=== PATIENT | female | born 1990 | race Caucasian/White ===

== ENCOUNTER 2022-01-23 08:02 | Outpatient (CLI) | payer OTHER, SELFPAY ==
--- NOTE | 2022-01-23 08:15 | US_ITS ---
Final Report Patient: JARRELL DALTON Facility:?[facility] Patient ID:?[id number] Site Patient ID:?[id number]. Site :?[id number] Study:?US OB Pelvis -01/23/2022 8:54:39 AM Ordering Physician:Adelina October Final Report: INDICATION: First trimester scan, establish dates. TECHNIQUE: Real-time dickinson-scale imaging of the pelvis was performed. FINDINGS: Sonographic imaging demonstrates a single living intrauterine gestation. The embryo demonstrates a regular cardiac rate measuring 173 beats per minute. The embryo`s crown-rump length measurement of 1.6 cm corresponds to a gestational age of 8 weeks 0 with a sonographic due date of 09/04/2022. There is a normal- appearing yolk sac. Small subchorionic hemorrhage measuring 1.3 x 0.9 x 2 centimeters. Ovaries unremarkable right ovarian corpus luteum cyst. IMPRESSION: Early intrauterine with crown-rump length measuring 1.6 centimeters corresponding to 8 weeks 0 days with WILEY of 09/04/2022. Small subchorionic hemorrhage. Dictated by Francisca Sanchez MD @ 01/23/2022 9:02:17 AM (Electronic Signature)
[2022-01-23 13:34] LABS: HIV 1/2/P24 Combo Screen* Negative (Negative); Hepatitis B Surface Antigen* Negative (Negative); Hepatitis C Virus Antibody* Negative (Negative)
[2022-01-24 18:31] LABS: Rubella Antibody IgG 26.9 IU/mL
[2022-01-25 05:16] LABS: Rapid Plasma Reagin (RPR) Non Reactive (Non Reactive)
== END 2022-01-23 08:03 | disposition home or self-care (01) ==
PROVIDERS: Visit Provider Physician Assistant
DX: O21.0 Mild hyperemesis gravidarum (principal); Z3A.08 8 weeks gestation of pregnancy
CPT/HCPCS: 36415; 76817; 86592; 86703; 86706; 86762; 86803; 86850; 86900; 86901; 87086; 87340; 87491; 87591

== ENCOUNTER 2022-04-24 08:02 | Outpatient (CLI) | payer OTHER, SELFPAY ==
--- NOTE | 2022-04-24 08:15 | CRLHL7_ITS ---
For Patients: As a result of the Century Cures Act, medical imaging exams and procedure reports are released immediately into your electronic medical record. You may view this report before your referring provider. If you have questions, please contact your health care provider. INDICATION: Evaluate anatomy. COMPARISON: 01/23/2022 TECHNIQUE: Real time dickinson scale imaging of the fetus was performed as well as color Doppler analysis of the umbilical vessels. FINDINGS: Sonographic imaging demonstrates a single living intrauterine gestation. Fetus demonstrates a regular cardiac rate of 148 beats per minute. Fetus has a vertex position. The placenta lies posteriorly without evidence of placenta previa. The edge of the placenta is located 4.8 cm from the internal cervical os. Amniotic fluid volume appears normal. Single deepest vertical pocket: 4.1 cm. The cervix is closed and measures 4.1 cm in length. The composite ultrasound gestational age is calculated at 21 weeks 4 days with an estimated sonographic due date of 08/31/2022. The estimated weight is 454 grams which lies at the 66th %. The following biometric measurements were obtained: Biparietal diameter: 4.8 cm/20 weeks 4 days 15th% Head circumference: 18.4 cm/20 weeks 5 days 14th% Abdominal circumference: 18.0 cm/22 weeks 6 days 85th% Femur length: 3.5 cm/21 weeks 0 days 26th% The HC/AC ratio measures: 1.02 range (1.06-1.24) On anatomic survey, there is a normal appearance of the cerebral ventricles, cavum septi pellucidi, cisterna magna and cerebellum. The nose, lips, and facial profile appear normal. The cervical, thoracic and lumbar spine are well visualized and appear normal. There is a normal four-chamber heart view and the left and right ventricular outflow tracts appear normal. The diaphragm and stomach appear normal. The kidneys and bladder also appear normal. There is a normal three-vessel cord and cord insertion site. The four extremities appear normal. IMPRESSION: Normal OB ultrasound exam with concordance of clinical and sonographic dating. No intrinsic abnormalities noted on anatomic survey. Dictated by Prabhu Cintron MD @ 04/24/2022 11:53:35 AM (Electronically Signed)
== END 2022-04-24 08:03 | disposition home or self-care (01) ==
LOC: US 08:03
PROVIDERS: Visit Provider Advanced Practice Midwife
DX: Z34.02 Encounter for supervision of normal first pregnancy, second trimester (principal); Z36.89 Encounter for other specified antenatal screening; Z3A.21 21 weeks gestation of pregnancy
CPT/HCPCS: 76805

== ENCOUNTER 2022-06-12 08:01 | Outpatient (CLI) | payer OTHER, SELFPAY ==
[2022-06-13 17:16] LABS: Rapid Plasma Reagin (RPR) Non Reactive (Non Reactive)
== END 2022-06-12 08:02 | disposition home or self-care (01) ==
LOC: NFLDREF 08:02
PROVIDERS: Visit Provider Advanced Practice Midwife
DX: Z34.93 Encounter for supervision of normal pregnancy, unspecified, third trimester (principal); Z3A.28 28 weeks gestation of pregnancy
CPT/HCPCS: 86592

== ENCOUNTER 2022-08-07 09:28 | Outpatient (CLI) | payer OTHER, SELFPAY ==
[2022-08-08 10:35] LABS: Strep B Pen/Amox Allergy No
[2022-08-08 12:15] LABS: Strep B DNA Probe NEGATIVE (Negative)
== END 2022-08-07 09:29 | disposition home or self-care (01) ==
LOC: NFLDREF 09:29
PROVIDERS: Visit Provider Advanced Practice Midwife
DX: Z34.03 Encounter for supervision of normal first pregnancy, third trimester (principal); Z3A.36 36 weeks gestation of pregnancy
CPT/HCPCS: 87081; 87653

== ENCOUNTER 2022-08-13 16:35 | Outpatient (CLI) | payer OTHER, SELFPAY ==
[2022-08-13 16:46] VITALS: PULSE 82; O2SAT 100
[2022-08-13 16:47] VITALS: BP 135/77; PULSE 73
[2022-08-13 16:51] VITALS: PULSE 66; O2SAT 99
[2022-08-13 16:56] VITALS: PULSE 65; O2SAT 99
--- NOTE | 2022-08-13 18:06 | PC.OBNST ---
NST Note NST Note Start: 08/13/22 16:51 Freq: ONCE Status: Active Protocol: Document 08/13/22 18:02 LG (Rec: 08/13/22 18:06 LG [id number]) NST Note 1 Para (# of births) 0 EDC 09/01/22 Gestational Age In Weeks & Days 37 Weeks & 2 Days Patient Presented with Complaint(s) of Contractions/cramping, Decreased movement,Other Other Complaints Patient reports she slipped on the ice on 08/02/22 around 1800 . Patient reports feeling increased cramps since that time but was feeling normal movement. Patient reports she noticed movement was less than usual this afternoon while at work. Patient called [facility] and was advised to be seen for monitoring. Reactive Yes Appropriate for Gestational Age Yes IRMA Aldana RN Date 08/13/22 Reactive Yes Appropriate for Gestational Age Yes IRMA Cruz RN Date 08/13/22 OB NST charge Yes Complete NST Note via Write Note Yes The provider's electronic signature indicates the NST is reactive/appropriate for gestational age. *Note to provider: If an addendum is required, open the patient's chart and click on the note under the Nurse/Allied Health tab.
== END 2022-08-13 18:08 | disposition home or self-care (01) ==
LOC: OB OUT 16:35 → OB 16:37
PROVIDERS: Visit Provider Advanced Practice Midwife
DX: O36.8130 Decreased fetal movements, third trimester, not applicable or unspecified (principal); Z3A.37 37 weeks gestation of pregnancy
CPT/HCPCS: 59025; 99213

== ENCOUNTER 2022-09-08 11:00 | Outpatient (CLI) | payer OTHER, SELFPAY ==
--- NOTE | 2022-09-08 11:00 | CRLHL7_ITS ---
For Patients: As a result of the Century Cures Act, medical imaging exams and procedure reports are released immediately into your electronic medical record. You may view this report before your referring provider. If you have questions, please contact your health care provider. INDICATION: POST DATES COMPARISON: 04/24/2022 TECHNIQUE: Real time dickinson scale imaging of the fetus was performed. Without non-stress testing. FINDINGS: Sonographic imaging demonstrates a single living intrauterine gestation. Fetus demonstrates a regular cardiac rate of 136 beats per minute. Fetus has a vertex position. The amniotic fluid volume appears normal and there is a single deepest pocket measurement of 4.8 cm. The fetus was active and demonstrated normal breathing movements. There was normal flexion and extension of the trunk and extremities. IMPRESSION: Normal biophysical profile score of 8 out of 8. Dictated by Prabhu Cintron MD @ 09/08/2022 11:47:27 AM (Electronically Signed)
== END 2022-09-08 11:01 | disposition home or self-care (01) ==
LOC: US 11:00
PROVIDERS: Visit Provider Advanced Practice Midwife
DX: O48.0 Post-term pregnancy (principal)
CPT/HCPCS: 76819

== ENCOUNTER 2022-09-10 13:19 | Inpatient (IN) | payer OTHER, SELFPAY ==
[2022-09-10] VITALS (13 sets, daily range): BP systolic 114–188; BP diastolic 56–123; PULSE 59–88; RESP 16; TEMP 36.7–36.8; BMI 33.3
--- NOTE | 2022-09-10 13:51 | W.PM.LDBA ---
Subjective History of Present Illness Date Seen: 09/10/22 Narrative: Patient is being admitted to Labor and Delivery for active labor. She is a 32 year old at 41.2 weeks gestation. Her full history and physical was dictated by Liz Nelson CNM on 08-11-2022. Please see this for details. 1. Hearing impaired, does not use hearing aids, louder voice is usually all that is needed 2. Exercise-induced asthma OB - Problem Based A/P Additional Plan (1) Post-dates : Status: Acute (2) Pain during labor: Status: Acute Plan ASSESSMENT:? at 41.2?weeks gestation? GBS negative? Uncomplicated ? Active labor ?? PLAN:? 1. Desires water . Consent signed. Hep C negative.? 2. Candidate for analgesia of choice. Planning unmedicated .? 3. Anticipate ? 4. Expectant management at this time.? 5. No IV needed at this time unless patient condition changes per unit policy. 6. Intermittent auscultation per unit policy after reactive tracing is obtained.? Delivery/Labor/Induction Plan Plan: expectant management OB Result Labs Blood Type: A (+) positive GBS Status: negative OB Exam Physical Exam Vital signs: Pulse BP 59 L 125/81 09/10/22 13:22 09/10/22 13:22 Narrative: OBJECTIVE:? Vitals per EMR? Psychiatric:? Alert and oriented x3? HEENT:? Normocephalic, atraumatic? Neck:? Supple without adenopathy or thyromegaly? Lungs:? Clear to auscultation bilaterally? Heart:? Regular rate and rhythm, no murmur, rub or gallop? Abdomen:? Soft, nontender, and gravid? Extremities:? No edema or erythema? Pelvic:? SVE: 3.5cm/80%/--1? Membrane status:? intact? presentation:? vertex? FHT:? Moderate Variability.? Positive Accels.? No Decels. Baseline 120.? Venturia:? Ctx Q2-4min? Detailed Labor and Delivery Exam Patient Gravid: Yes Dilation (cm): 3 (3.5 per RN exam) Effacement (%): 80 Contraction Frequency: 2-4min Tachysystole: No Contraction intensity: Strong/Firm Fetus (Single) Station: -1 Amniotic Membrane Status: intact Heart Rate Baseline: 120 Monitor Accelerations: Present Monitor Decelerations: None Retirement Variability: Moderate (6-25)
[2022-09-10 14:32] LABS: SARS PCR* Negative SARS-CoV-2 (Negative)
[2022-09-10] MEDS: LIDOCAINE 1 % PF 30 ML INJECTION (17:46)
--- NOTE | 2022-09-10 18:13 | P.OBPRC_ITS ---
Procedure Delivery date: 09/10/22 Procedure Done: Global Procedure Details: Patient is a 32 year-old G1 now P1 admitted on 09/10/22 at 41 Weeks, 2 Days gestation for labor.? Cervical exam on admission was 3.5 cm/80 % effaced/-1 station with membranes intact in vertex presentation.? Contractions were every 2-4 minutes.? heart rate demonstrated baseline 120 bpm with moderate variability, + accelerations, - decelerations; a category 1 tracing.? AROM occurred at 1510 with clear fluid.? ? Labor Analgesia:? Nitrous for a portion of the labor? ?? Pitocin:? No? ?? Labor onset:? 1400? ?? Complete:? Assumed with pushing at 1532? ?? Pushing:? 1532? ?? heart tones during second stage were obtained by Doppler in the 130- 140's.?No decelerations heard. ?? At 1701 a viable female infant delivered in vertex ROT presentation over intact perineum via spontaneous vaginal delivery.? Infant was placed on maternal abdomen.? Cord was clamped and cut after a?>5 minute delay.? Nose and mouth were bulb suctioned.? weight pending.? 8 at 1 minute and 8 at 5 minutes.? Shoulder dystocia: no.? Nuchal cord: x1, loose, somersaulted through.? ?? Placenta delivered spontaneously and complete at 1737 with a 3 vessel cord.? ?? Mother and were stable after delivery.? ?? Lacerations:? 2nd degree, repaired with 3.0 Vicryl.? ?? Blood loss: 150 mL.? Blood loss measurement type: 100ml EBL in the tub, 50ml QBL? Sponge and needles counts are correct.? Intrapartal Events: None Delivery augmentation: rupture of membranes Delivery monitor: external FHT and external uterine Route of delivery: Episiotomy description: None Laceration description: Perineal - 2nd Degree Delivery repair: Vicryl Estimated blood loss (mL): 150 Anesthesia type: None Disposition: floor Infant Infant Gender: Female presentation: vertex Placental Delivery Description: Spontaneous Cord Description: 3 Vessels, Nuchal Cord and Loose total score - 1 minute: 8 total score - 5 minute: 8 OB Vag Delivery Procedures Additional Procedures Laceration Repair: Yes
[2022-09-10] MEDS: IBUPROFEN 600 MG TABLET PO (18:45)
[2022-09-11 00:01] VITALS: BP 111/68; PULSE 66; RESP 16; TEMP 36.8; O2SAT 98
[2022-09-11] MEDS: IBUPROFEN 600 MG TABLET PO ×2 (02:27→14:22)
[2022-09-11] MEDS: CALCIUM CARBONATE 500 MG CHEW PO (02:28)
[2022-09-11 04:00] VITALS: BP 115/59; PULSE 66; RESP 18; TEMP 36.8; O2SAT 99
--- NOTE | 2022-09-11 08:00 | P.OBPN_ITS ---
OB - PN:Subj Subjective Date Seen: 09/11/22 Patient comments OB post-: no complaints [employer] feeding status: exclusively Narrative: Glenda is a at 41 2/7 weeks gestation who presented to Labor and Delivery for spontaneous onset of labor. She had an uncomplicated , waterbirth. the patient has done well.? The pain is well controlled with current medications.? She has no new complaints.? Urinary output is adequate and she is voiding without difficulty.? Has a good appetite, is tolerating a general diet, is passing flatus, and has had a bowel movement.? Has scant amount of rubra lochia.? She is ambulating well. She is and reports it is going well.? OB - PN: Obj Exam Physical Exam: Vital signs: Temp Pulse Resp BP Pulse Ox O2 Del Method 98.2 F 66 18 115/59 L 99 09/11/22 04:00 09/11/22 04:00 09/11/22 04:00 09/11/22 04:00 09/11/22 04:00 09/11/22 04:00 Narrative: GENERAL APPEARANCE:? normal affect, alert, no distress? MOOD:? appropriate? CHEST:? clear to auscultation? HEART:? regular rate and rhythm? ABDOMEN:? soft, non-tender the uterine fundus is At Umbilicus, Midline and is appropriate for the stage of recovery.? PERINEUM:? mild edema of the perineum, there is a Perineal Laceration,? that is healing well.? EXTREMITIES:? normal and no edema OB - PN: Obj Data Labs Labs: Laboratory Results - last 24 hr 09/10/22 13:43 SARS-CoV-2 (PCR) Negative SARS-CoV-2 OB - PN: A/P Vaginal Delivery Assessment and Plan (1) care and examination immediately after delivery: Status: Acute (2) Status post vaginal delivery: Status: Acute (3) Lactating mother: Status: Acute Plan day: 1 Plan: routine care Comments: Lactating mother. May see if desired. Anticipate discharge tomorrow, 09/12/22.
[2022-09-11 08:12] VITALS: BP 118/72; PULSE 80; RESP 16; TEMP 37; O2SAT 97
[2022-09-11] MEDS: DOCUSATE SODIUM 100 MG CAPSULE PO (09:26)
[2022-09-11 11:15] VITALS: BP 121/62; PULSE 74; RESP 18; TEMP 36.9; O2SAT 98
[2022-09-11 16:19] VITALS: BP 119/60; PULSE 70; RESP 18; TEMP 36.9; O2SAT 98
[2022-09-11 20:44] VITALS: BP 125/83; PULSE 67; RESP 16; TEMP 36.9; O2SAT 98
[2022-09-12] MEDS: IBUPROFEN 600 MG TABLET PO ×2 (00:12→12:50)
[2022-09-12 01:02] VITALS: BP 117/77; PULSE 66; RESP 16; TEMP 37.2; O2SAT 100
[2022-09-12 09:43] VITALS: BP 121/80; PULSE 80; RESP 16; TEMP 36.9; O2SAT 98
--- NOTE | 2022-09-12 10:46 | P.DS_ITS ---
Documented by User: Telma Padron CNM 09/12/22 10:59 DS: Providers Provider Time Seen by Provider: 10:46 Date Seen: 09/12/22 Date of admission: 09/10/22 13:19 Primary care physician: Zack Dawn Generic Admitting Clinician: Natalie Nelson CNM Attending Physician on discharge: Telma Padron CNM Date of Discharge: 09/12/22 DS: Diagnosis Discharge Diagnosis (1) state: Status: Acute (2) Lactating mother: Status: Acute Exam Narrative: Exam Narrative: Objective: VSS, afebrile GENERAL APPEARANCE: ?normal affect, alert, no distress MOOD: ?appropriate HEENT: normocephalic, neck supple, full ROM CHEST: ?Symmetrical chest wall movement. ?Normal respiratory effort. ?Clear to auscultation HEART: ?regular rate and rhythm ABDOMEN: ?soft, non-tender. Uterine fundus is firm, 3 under Umbilicus, Midline and is appropriate for the stage of recovery. ?Bowel sounds present. PERINEUM:Deferred per pt EXTREMITIES: ?normal and no edema Const: Vital Signs, click to edit/add: Vital Signs - 24 hr 09/11/22 11:15 09/11/22 16:19 09/11/22 20:44 Temperature 98.4 F 98.5 F 98.4 F Pulse Rate [Blood Pressure Cuff] 74 70 67 Respiratory Rate 18 18 16 Blood Pressure [Le ft Arm] 121/62 119/60 125/83 Pulse Oximetry 98 98 98 Oxygen Delivery Me thod Room Air Room Air Room Air 09/12/22 01:02 09/12/22 09:43 Temperature 99.0 F 98.5 F Pulse Rate [Blood Pressure Cuff] 66 80 Respiratory Rate 16 16 Blood Pressure [Le ft Arm] 117/77 121/80 Pulse Oximetry 100 98 Oxygen Delivery Me thod Room Air Documenting provider has reviewed patient's vital signs: yes OB - DS: Summary Hospital Course Hospital Course: Subjective: Glenda is a 32 y.o. G1 now P1 who was admitted to L & D for active labor. ?She had an uncomplicated spontaneous vaginal delivery. The patient feels well. ?The pain is well controlled with current medications. ?She declined any prescriptions for medications, stating she already has stool softeners and ibuprofen at home. Reports back & shoulder soreness and some perineal discomfort with movement, but not pain. She has no new complaints. ?She is breast feeding and reports things are going better since she has been working with . Encouraged pt to call with questions or concerns.? the patient has done well.? Vitals have been stable.? She has remained afebrile.? Has a good appetite, is tolerating a general diet. ?She is voiding without difficulty.? She is passing gas and has not had a bowel move ment.? She is ambulating and denies any dizziness.? Has a small amount of rubra lochia. ?She is planning condoms for prevention. Assessment: G now P Lactating Mother plan: Discharge home with baby. Follow up in 2 weeks and 6 weeks in clinic. , may follow up with if needed Peripartum Data delivery method: Vaginal Laceration description: Perineal - 2nd Degree complications: none [place] Infant Gender: Female (Zahra) Infant Discharge Plan: Home Status at Discharge Functional status at discharge: independent ambulation Overall status at discharge: patient is progressing back to baseline Time Spent with Patient Time attestation: Total time spent providing and/or coordinating discharge services: Time spent: Less than 30 minutes Discharge Plan Discharge Disposition: Home, Self-Care Date of Admission: 09/10/22 13:19 Attending Provider on Discharge: Telma Padron Primary Care Provider: Zack Hall Provider Condition: Stable Anticipated Discharge Date/Time: 09/12/22 10:56 Discharge Medications: New acetaminophen 500 mg Tablet 1,000 mg PO Q6H PRNQty: 0 0RF docusate sodium 100 mg Capsule 100 mg PO DAILY Qty: 0 0RF ibuprofen 600 mg Tablet 600 mg PO Q6H PRNQty: 0 0RF Continued albuterol sulfate 90 mcg/actuation aerosol powdr breath activated 2 inh inhalation Q6H PRN DHA 200 mg capsule PO DAILY Discharge Orders: Discharge Order (Routine); Ordered 09/12/22 Ordered By: Telma Padron Patient Education: OB Over the Counter Medication Information, OB Vaginal/Breast Feeding Additional Instructions: 2 & 6 week visits Activity Level: Activity as Tolerated Discharge Diet: Regular Follow Up Appointments: [facility] [Provider Group] Zack Hall Provider [Primary Care Provider] - Forms: [facility] Info Instructions Documented by User: Alpa Ortiz Downs CNM 09/12/22 11:10 DS: Diagnosis Discharge Diagnosis (1) state: Status: Acute (2) Lactating mother: Status: Acute OB - DS: Summary Hospital Course Hospital Course: Subjective: Glenda is a 32 y.o. G1 now P1 who was admitted to L & D for active labor. ?She had an uncomplicated spontaneous vaginal delivery. The patient feels well. ?The pain is well controlled with current medications. ?She declined any prescriptions for medications, stating she already has stool softeners and ibuprofen at home. Reports back & shoulder soreness and some perineal discomfort with movement, but not pain. She has no new complaints. ?She is breast feeding and reports things are going better since she has been working with . Encouraged pt to call with questions or concerns.? the patient has done well.? Vitals have been stable.? She has remained afebrile.? Has a good appetite, is tolerating a general diet. ?She is voiding without difficulty.? She is passing gas and has not had a bowel movement.? She is ambulating and denies any dizziness.? Has a small amount of rubra lochia. ?She is planning condoms for prevention. Assessment: G 1 now P 1 Lactating Mother plan: Discharge home with baby. Follow up in 2 weeks and 6 weeks in clinic. , may follow up with if needed Discharge Plan Discharge Disposition: Home, Self-Care Date of Admission: 09/10/22 13:19 Attending Provider on Discharge: Telma Padron Primary Care Provider: Zack Hall Provider Condition: Stable Anticipated Discharge Date/Time: 09/12/22 10:56 Discharge Medications: New acetaminophen 500 mg Tablet 1,000 mg PO Q6H PRNQty: 0 0RF docusate sodium 100 mg Capsule 100 mg PO DAILY Qty: 0 0RF ibuprofen 600 mg Tablet 600 mg PO Q6H PRNQty: 0 0RF Continued albuterol sulfate 90 mcg/actuation aerosol powdr breath activated 2 inh inhalation Q6H PRN DHA 200 mg capsule PO DAILY Discharge Orders: Discharge Order (Routine); Ordered 09/12/22 Ordered By: Telma Padron Patient Education: OB Over the Counter Medication Information, OB Vaginal/Breast Feeding Additional Instructions: 2 & 6 week visits Activity Level: Activity as Tolerated Discharge Diet: Regular Follow Up Appointments: [facility] [Provider Group] Generic,Zack Provider [Primary Care Provider] - Forms: [facility] Info Instructions
[2022-09-12] MEDS: DOCUSATE SODIUM 100 MG CAPSULE PO (12:50)
== END 2022-09-12 16:00 | disposition home or self-care (01) | DRG 807 ==
LOC: OB OUT 13:20 → OB 13:20
PROVIDERS: Admitting Provider Advanced Practice Midwife; Visit Provider Advanced Practice Midwife
DX: O48.0 Post-term pregnancy (principal); Z37.0 Single live birth; O70.1 Second degree perineal laceration during delivery; Z3A.41 41 weeks gestation of pregnancy
CPT/HCPCS: 87635; A9270; J2001

== ENCOUNTER 2024-01-15 09:03 | Outpatient (CLI) | payer OTHER, SELFPAY ==
--- NOTE | 2024-01-15 09:15 | CRLHL7_ITS ---
For Patients: As a result of the Cures Act, medical imaging exams and procedure reports are released immediately into your electronic medical record. You may view this report before your referring provider. If you have questions, please contact your health care provider. INDICATION: First trimester scan, establish dates. COMPARISON: None. TECHNIQUE: Real-time dickinson-scale imaging of the pelvis was performed. FINDINGS: Sonographic imaging demonstrates a single living intrauterine gestation. The embryo demonstrates a regular cardiac rate measuring 169 beats per minute. The embryo`s crown-rump length measurement of 2.0 cm corresponds to a gestational age of 8 weeks 4 days with a sonographic due date of 08/22/2024. There is a normal-appearing yolk sac. There are no gross abnormalities noted within the embryo at this early state of development. The gestational sac has a normal appearance. There is no evidence of a perigestational hemorrhage. The amount of fluid within the sac appears appropriate for gestational age. The cervix is closed. The myometrium appears normal. The ovaries are of normal size. Corpus luteal cyst right ovary. There are no suspicious fluid collections noted in the cul-de-sac. IMPRESSION: Normal first trimester OB ultrasound exam. Gestational age calculated at 8 weeks 4 days with a sonographic due date of 08/22/2024. Dictated by Prabhu Cintron MD @ 01/15/2024 11:44:03 AM (Electronically Signed)
== END 2024-01-15 09:04 | disposition home or self-care (01) ==
LOC: US 09:03
PROVIDERS: PCP Family Medicine; Visit Provider Physician Assistant
DX: Z34.91 Encounter for supervision of normal pregnancy, unspecified, first trimester (principal); Z3A.08 8 weeks gestation of pregnancy
CPT/HCPCS: 76817; 86592; 86703; 86704; 86706; 86762; 86787; 86803; 86850; 86900; 86901; 87086; 87340; 87491; 87591

== ENCOUNTER 2024-04-08 10:18 | Outpatient (CLI) | payer OTHER, SELFPAY ==
--- NOTE | 2024-04-08 10:15 | CRLHL7_ITS ---
For Patients: As a result of the Century Cures Act, medical imaging exams and procedure reports are released immediately into your electronic medical record. You may view this report before your referring provider. If you have questions, please contact your health care provider. INDICATION: Evaluate anatomy. COMPARISON: 01/15/2024 TECHNIQUE: Real time dickinson scale imaging of the fetus was performed as well as color Doppler analysis of the umbilical vessels. FINDINGS: Sonographic imaging demonstrates a single living intrauterine gestation. Fetus demonstrates a regular cardiac rate of 163 beats per minute. Fetus has a breech position. The placenta lies anteriorly without evidence of placenta previa. Edge of the placenta is located 2.8 cm from the internal cervical os. Amniotic fluid volume appears normal. Single deepest vertical pocket: 4.1 cm. The cervix is closed and measures 3.7 cm in length. The composite ultrasound gestational age is calculated at 20 weeks 4 days with an estimated sonographic due date of 08/22/2024. The estimated weight is 382 grams which lies at the 61st %. The following biometric measurements were obtained: Biparietal diameter: 4.7 cm/20 weeks 2 days 37th% Head circumference: 17.7 cm/20 weeks 1 day 24th% Abdominal circumference: 16.0 cm/21 weeks 1 day 61st% Femur length: 3.4 cm/20 weeks 6 days 51st% The HC/AC ratio measures: 1.11 range (1.07-1.25) On anatomic survey, there is a normal appearance of the cerebral ventricles, cavum septi pellucidi, cisterna magna and cerebellum. The nose, lips, and facial profile appear normal. The cervical, thoracic and lumbar spine are well visualized and appear normal. There is a normal four-chamber heart view and the left and right ventricular outflow tracts appear normal. The diaphragm and stomach appear normal. The kidneys and bladder also appear normal. There is a normal three-vessel cord and cord insertion site. The four extremities appear normal. IMPRESSION: Normal OB ultrasound exam with concordance of clinical and sonographic dating. No intrinsic abnormalities noted on anatomic survey. Dictated by Prabhu Cintron MD @ 04/08/2024 12:58:14 PM (Electronically Signed)
== END 2024-04-08 10:19 | disposition home or self-care (01) ==
LOC: US 10:19
PROVIDERS: PCP Family Medicine; Visit Provider Midwife
DX: Z34.92 Encounter for supervision of normal pregnancy, unspecified, second trimester (principal); Z3A.20 20 weeks gestation of pregnancy
CPT/HCPCS: 76805

== ENCOUNTER 2024-06-01 09:45 | Outpatient (CLI) | payer OTHER, SELFPAY | END 2024-06-01 09:46 | disposition home or self-care (01) | LOC: NFLDREF 09:46 | PROVIDERS: PCP Family Medicine; Visit Provider Midwife | DX: Z34.83 Encounter for supervision of other normal pregnancy, third trimester (principal) | CPT/HCPCS: 86592 ==

== ENCOUNTER 2024-07-29 10:42 | Outpatient (CLI) | payer OTHER, SELFPAY ==
[2024-07-30 13:39] LABS: Strep B DNA Probe Negative (Negative)
[2024-07-30 14:43] LABS: Strep B Susceptibility Needed? No
== END 2024-07-29 10:43 | disposition home or self-care (01) ==
PROVIDERS: PCP Family Medicine; Visit Provider Advanced Practice Midwife
DX: Z34.83 Encounter for supervision of other normal pregnancy, third trimester (principal)
CPT/HCPCS: 87081; 87653

== ENCOUNTER 2024-08-17 11:18 | Outpatient (CLI) | payer OTHER, SELFPAY ==
--- NOTE | 2024-08-17 11:30 | CRLHL7_ITS ---
For Patients: As a result of the Century Cures Act, medical imaging exams and procedure reports are released immediately into your electronic medical record. You may view this report before your referring provider. If you have questions, please contact your health care provider. OB ULTRASOUND LMP: 11/16/2023. WILEY by LMP: 08/22/2024. GA: 39 w, 2 d. Single. Comparison: 04/08/2024, 01/15/2024. INDICATION: Growth. TECHNIQUE: Real time dickinson scale imaging of the fetus was performed. Transabdominal. CERVIX: Not visualized. POSITIONING: Vertex. AMNIOTIC FLUID: 4.7 cm. SDP (N: greater than 2 x 1 cm) PLACENTA: Technique: Transabdominal. PLACENTA POSITION: Anterior. DOPPLER: heart rate: 131 bpm. BIOMETRY: BPD: 9.4 cm. 38 w, 2 d, 59 percent. HC: 34.2 cm. 39 w, 3 d, 44 percent. AC: 34.8 cm. 38 w, 5 d, 58 percent. FL: 7.1 cm. 36 w, 1 d, 3 percent. FL/AC ratio: 20.3 percent. HC/AC ratio: 1.0. EFW: 3417 g. Weight: 7 lbs, 9 oz. age by this US: 38 w, 1 d. WILEY by this US: 08/30/2024. Percentile by WILEY: 43.6 percent. IMPRESSION: 1. Sonographic gestational age 38 weeks 1 day and sonographic due date 08/30/2024. Sonographic age is 8 days behind the clinical age. 2. Estimated weight 44th percentile. Abdominal circumference 58th percentile. Prabhu Cintron M.D. Diagnostic Radiologist [email or web address] KARLEE/[email or web address] kingsotn/Dictated by: Prabhu Cintron MD @ 08/17/2024 1:26:00 PM (Electronically Signed)
== END 2024-08-17 11:19 | disposition home or self-care (01) ==
LOC: US 11:18
PROVIDERS: PCP Family Medicine; Visit Provider Advanced Practice Midwife
DX: O09.293 Supervision of pregnancy with other poor reproductive or obstetric history, third trimester (principal); Z3A.39 39 weeks gestation of pregnancy
CPT/HCPCS: 76816

== ENCOUNTER 2024-08-25 00:45 | Inpatient (IN) | payer OTHER, SELFPAY ==
[2024-08-25] VITALS (14 sets, daily range): BP systolic 106–130; BP diastolic 55–76; PULSE 67–82; RESP 12–16; TEMP 36.4–36.9; O2SAT 97–100
--- NOTE | 2024-08-25 00:41 | W.PM.LDBA ---
Subjective History of Present Illness Date Seen: 08/25/24 Narrative: Glenda is being admitted to Labor and Delivery for active labor. She is a 34 year old at 40.3 weeks gestation. Her full history and physical was dictated by Liz Nelson CNM on 08/05/24. Please see this for details. Glenda has been sergio on and off for most of the day. They started picking up this evening and became regular and more painful around 2230. On admit she was found to be 6cm/80%/-1 per RN exam. She desires a waterbirth and will plan to utilize that after a reactive tracing and the tub is ready. She will likely also desire to use nitrous. Specific Issues/Plans Partner: Jaskaran , Daughter: Zahra. Its another girl! H&P completed by Liz Nelson CNM on 08/05/24? ? # exercise-induced asthma # Hard of hearing? #Breech at 32 weeks ? Imaging:? 1st trimester: Normal first trimester OB ultrasound exam. Gestational age calculated at 8 weeks 4 days with a sonographic due date of 08/22/2024. Dictated by Prabhu Cintron MD @ 01/15/2024 ?? Anatomy scan: Normal OB ultrasound exam with concordance of clinical and sonographic dating. No intrinsic abnormalities noted on anatomic survey. Dictated by Prabhu Cintron MD @ 04/08/2024?? Others: none? ? COVID:?declined Flu:?declined Tdap:?declined RSV:?declined?? 32wk Mental Health:?06/27/2024 34wk hgb:?07/18/2024: 11.8?? Pap: [(Only high-risk abnormal pap in problem list)]? OB - Problem Based A/P Additional Plan (1) Hard of hearing: Status: Acute (2) Exercise-induced asthma: Status: Acute (3) Pain during labor: Status: Acute Plan ASSESSMENT:? at 40.3 weeks gestation? GBS negative? Uncomplicated ? Labor type: spontaneous Blood type:?A+ ?? PLAN:? 1. Active labor at term. History of precipitous delivery. 2. Desires water . Consent signed. Hep C negative.? 3. Candidate for analgesia of choice. Planning unmedicated .? 4. Anticipate ? 5. Expectant management at this time.? 6. IV not needed at this time but can consider if patient condition changes. 7. Intermittent auscultation after reactive tracing is obtained. ? ? Delivery/Labor/Induction Plan Plan: expectant management OB Result Labs Blood Type: A (+) positive Rubella: immune RPR/VDLR: nonreactive GBS Status: negative HBsAG: negative OB Exam Physical Exam Narrative: Psychiatric:? Alert and oriented x3? HEENT:? Normocephalic, atraumatic? Neck:? Supple without adenopathy or thyromegaly? Lungs:? Clear to auscultation bilaterally? Heart:? Regular rate and rhythm, no murmur, rub or gallop? Abdomen:? Soft, nontender, and gravid? Extremities:? No edema or erythema? Pelvic:? SVE: 6cm/80%/-1? Membrane status:? intact?? FHT:? Moderate Variability.? Positive Accels.? No Decels. Baseline 135.? [place]:? Ctx Q2-4min? ?? Detailed Labor and Delivery Exam Patient Gravid: Yes Dilation (cm): 6 Effacement (%): 80 Contraction Frequency: 2-4 Tachysystole: No Contraction intensity: Strong/Firm Fetus (Single) Station: -1 Amniotic Membrane Status: intact Heart Rate Baseline: 135 Monitor Accelerations: Present Monitor Decelerations: None [employer] Variability: Moderate (6-25)
--- NOTE | 2024-08-25 02:09 | W.PM.OBVAGDE ---
OB Procedure Vag Delivery Mother Details Mother Details: The patient is a 34 year-old, 2, Para 1, admitted on 08/25/24 at 40.3 Days gestation. : 2 Para: 2 Weeks Gestation: 40.3 Admission Date: 08/25/24 Additional Details Amniotic Membrane Status: AROM Amniotic Membrane Rupture Date: 08/25/24 Amniotic Membrane Rupture Time: :34 Amniotic Membrane Fluid Description: Clear Analgesia/Anesthesia Type: Nitrous Oxide Waterbirth: Yes [place]: No Intrapartal Events: Labor Augmentation Delivery augmentation: rupture of membranes Labor Onset: 00:30 Complete: :36 Pushin:36 Heart: heart tones during second stage were not heard due to very short second stage. Before 2nd stage they were heard to be in the normal range without decreases. Delivery Details Delivery Date: 08/25/24 Delivery Time: :41 Route of delivery: Gender: Female Infant Viability: Alive; Heart Rate Present Position at Delivery: OA Delivery Details: Patient was admitted for active labor and progressed with AROM augmentation per her request. AROM noted at 0134 with clear fluid. Patient was complete at 0136 and pushing at 0136. of a viable female at 0141 in hands and knees in the tub. Vertex delivered OA. No shoulder. Nuchal cord x1, unable to reduce before delivery but able to summersault and reduce after delivery of the body. Body delivered easily and without incident. Infant passed to mothers abdomen. No cry and low FHR was noted so the cord was cut and clamped around 1 minute. Baby was brought to the warmer for evaluation where she immediately started crying and improved rapidly. Baby was brought back skin to skin after Glenda was in bed. APGARS were 8 at one minute and 9 at five minutes respectively. Mouth was bulb suctioned. Intact placenta with a 3 vessel cord delivered spontaneously at 0155. Fundus firm. A small 1st identified and not repaired after shared decision making. It was well approximated and hemostatic. QBL 25 cc. Mother and baby stable; mother plans to breastfeed. Infant weight 7lb 14oz.? 1 Minute Interval Total Score: 8 5 Minute Interval Total Score: 9 Additional Details Shoulder Dystocia: No Placenta Delivery Time: :55 Placental Delivery Description: Spontaneous Procedure Done: Global Blood Loss: 25 Laceration: Perineal - 1st Degree (not repaired ) Episiotomy Description: None Blood Loss Measurement Type: QBL [place] Used: No Sponge/Need Count Correct: Yes Cord Vessel Description: 3 Vessels and Nuchal Cord Event Summary Status: Mother and infant were stable after delivery. Disposition: floor
[2024-08-25] MEDS: IBUPROFEN 600 MG TABLET PO ×3 (03:16→18:21)
[2024-08-25] MEDS: DOCUSATE SODIUM 100 MG CAPSULE PO (12:34)
[2024-08-25] MEDS: CALCIUM CARBONATE 500 MG CHEW PO (17:26)
[2024-08-26 00:51] VITALS: BP 110/72; PULSE 59; RESP 12; TEMP 36.7; O2SAT 98
[2024-08-26 08:00] VITALS: BP 116/75; PULSE 77; RESP 17; TEMP 36.6; O2SAT 98
--- NOTE | 2024-08-26 12:11 | PM.OBDSVD1 ---
DS: Providers Provider Time Seen by Provider: 08:00 Date Seen: 08/26/24 Date of admission: 08/25/24 00:45 Primary care physician: Markel Herrera MD Admitting Clinician: Natalie Nelson CNM Attending Physician on discharge: Natalie Nelson CNM DS: Diagnosis Discharge Diagnosis (1) care and examination of lactating mother: Status: Acute Exam Const: Vital Signs, click to edit/add: Vital Signs - 24 hr 08/25/24 13:20 08/25/24 17:15 08/25/24 20:21 Temperature 98.3 F 98.2 F 97.5 F L Pulse Rate [Pulse Oximeter] 70 77 68 Respiratory Rate 16 16 12 Blood Pressure [Ri ght Arm] 111/65 109/69 113/72 Pulse Oximetry 97 97 98 Oxygen Delivery Me thod Room Air Room Air Room Air 08/26/24 00:51 08/26/24 08:00 Temperature 98.1 F 97.8 F Pulse Rate [Pulse Oximeter] 59 L 77 Respiratory Rate 12 17 Blood Pressure [Ri ght Arm] 110/72 116/75 Pulse Oximetry 98 98 Oxygen Delivery Me thod Room Air Room Air Common normals: no apparent distress, average body habitus, oriented x3, no limitations, healthy appearing, alert and well nourished Resp: Common normals: normal respiratory effort and clear to auscultation bilaterally Auscultation: clear to auscultation bilaterally Cardio: Common normals: regular rate, regular rhythm, S1 normal heart sound, S2 normal heart sound, no gallops, no clicks and no murmurs Rate: regular rate Rhythm: regular rhythm Heart sounds: S1 normal and S2 normal : External Female Exam: external swelling Uterus: U/U Lochia: scant Neuro: Common normals: oriented x3 Sensorium/orientation: alert Psych: Common normals: mental status grossly normal, thought process normal, cooperative and affect normal Thought process: normal thought process OB - DS: Summary Hospital Course Hospital Course: Patient has no complaints? No active bleeding?? Doing well? She is requesting discharge home.? ? Patient is a 34year old, G2 now P 2? admitted on 08/25/2024 at 40 Weeks, 4 Days gestation for labor.? She had an uncomplicated vaginal delivery.?She delivered a viable .?? ? Peripartum Data Infant delivery method: Vaginal Laceration description: Perineal - 1st Degree (hemostatic and well approximated, not repaired) complications: none Infant Gender: Female Discharge Plan: Home Status at Discharge Functional status at discharge: independent ambulation Overall status at discharge: patient is progressing back to baseline Time Spent with Patient Time attestation: Total time spent providing and/or coordinating discharge services: Time spent: Less than 30 minutes Discharge Plan Discharge Disposition: Home, Self-Care Date of Admission: 08/25/24 00:45 Attending Provider on Discharge: Jennifer Gutierrez Primary Care Provider: Markel Herrera Condition: Stable Anticipated Discharge Date/Time: 08/26/24 10:00 Discharge Medications: Continued polyethylene glycol 3350 [Miralax] 17 gram/dose powder 4 g PO QDAY PRN DHA 200 mg capsule 200 mg PO DAILY albuterol sulfate 90 mcg/actuation HFA aerosol inhaler 2 puff inhalation Q4-6H PRN (Reason: shortness of breath or wheezing) Qty: 8.5 3RF Discharge Orders: Discharge Order (Routine); Ordered 08/26/24 Ordered By: Jennifer Gutierrez Patient Education: OB Vaginal/Breast Feeding Additional Instructions: Discharge instructions were reviewed with the patient including signs and symptoms of infection and home going medications.? Lifting Restrictions: 20 pounds for 6? weeks? ?? Do not drive while taking narcotic pain meds.? Off Work or School for 6 weeks.? ?? Symptoms to report to doctor:? -Bleeding that saturates more than one pad per hour? -Passing clots larger than the size of a golf ball? -Pain not relieved by prescribed medication? -Fever above 100.4 degrees Fahrenheit? -A foul vaginal odor? -Difficulty in emotions, mood and functions? -Thoughts of hurting yourself and/or ? -Painful, reddened area in your breast? -Any drainage, redness or tenderness in your IV/epidural site? -Severe headache that doesn't improve after taking medications? -Changes in vision, including temporary loss of vision, blurred vision, and/or light sensitivity? -Upper abdominal pain (usually under ribs on the right side)? -Decrease in urination or painful, frequent urinating? -Chest pain? -Shortness of breath? -Tenderness or pain with redness and/swelling in the calf(s) of your leg? ?? Follow Up in clinic in 2 and 6 weeks.? ?? consultation services are available to all mothers and babies for the first year after delivery.? To make an appointment, please call [phone].? Activity Level: No Restrictions Discharge Diet: Regular Follow Up Appointments: Markel Herrera MD [Primary Care Provider] - Jennifer Gutierrez CNM [Certified Nurse Activity Therapy Specialist] - Forms: MyHealth Info Instructions
== END 2024-08-26 09:55 | disposition home or self-care (01) | DRG 807 ==
LOC: OB OUT 01:12 → OB 01:12
PROVIDERS: Admitting Provider Advanced Practice Midwife; PCP Family Medicine; Visit Provider Advanced Practice Midwife
DX: O48.0 Post-term pregnancy (principal); Z37.0 Single live birth; O70.0 First degree perineal laceration during delivery; O99.892 Other specified diseases and conditions complicating childbirth; H91.90 Unspecified hearing loss, unspecified ear; J45.990 Exercise induced bronchospasm; Z3A.40 40 weeks gestation of pregnancy
CPT/HCPCS: 86592; A9270